=== PATIENT | male | born 2000 | race Caucasian/White ===

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

== ENCOUNTER 2020-01-19 09:12 | Emergency (ER) | payer OTHER ==
[2020-01-19 09:24] VITALS: BP 132/81
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
--- NOTE | 2020-01-19 10:14 | RADIOLOGY REPORT (SQ) ---
EXAM DESCRIPTION: HAND RIGHT 3 VIEWS IMAGES COMPLETED DATE/TIME: 01/19/2020 9:50 am REASON FOR STUDY: right hand pain COMPARISON: None. EXAM PARAMETERS: NUMBER OF VIEWS: Three views. TECHNIQUE: AP, lateral and oblique radiographic images acquired of the right hand. LIMITATIONS: None. FINDINGS: MINERALIZATION: Normal. BONES: No acute fracture or dislocation. No worrisome bone lesions. No significant osteophytes. JOINTS: No erosions. No chaya-articular osteopenia. No chondrocalcinosis. SOFT TISSUES: No swelling. No calcifications. OTHER: No other significant finding. IMPRESSION: NEGATIVE STUDY OF THE RIGHT HAND. NO EXPLANATION FOR PAIN. TECHNICAL DOCUMENTATION: JOB ID: [id number] 2010 [employer]- All Rights Reserved Reading location - IP/workstation name: [email or web address]
== END 2020-01-19 10:42 | disposition home or self-care (01) ==
LOC: ER 09:12
DX: S63.501A Unspecified sprain of right wrist, initial encounter (principal); S60.519A Abrasion of unspecified hand, initial encounter; M25.531 Pain in right wrist; M79.641 Pain in right hand; W22.8XXA Striking against or struck by other objects, initial encounter; W22.01XA Walked into wall, initial encounter; F17.200 Nicotine dependence, unspecified, uncomplicated
CPT/HCPCS: 99283